=== PATIENT | male | born 1985 | race Caucasian/White ===

== ENCOUNTER 2018-08-26 05:47 | Emergency (ER) | payer OTHER ==
[~2018-08-26] VITALS: Ht 175.3 cm; Wt 71.7 kg
[2018-08-26] MEDS ORDERED: NOHOMEMEDICATIONS (05:55)
[2018-08-26 06:47] LABS: ABSOLUTE EOSINOPHILS 0.1 thou/uL (0.0-0.7); ABSOLUTE LYMPHOCYTES 0.5 thou/uL (0.8-5.3); ABSOLUTE MONOCYTES 0.6 thou/uL (0.0-1.2); BASOPHILS 0.2 %; HEMATOCRIT 43.6 % (42.0-52.0); HEMOGLOBIN 14.8 gm/dL (14.0-18.0); LYMPHOCYTES 6.5 %; MCH 31.3 pg (26.0-34.0); MCHC 33.9 g/dL (28.0-37.0); MCV 92.1 fL (80.0-100.0); MONOCYTES 7.3 %; MPV 9.2 fl. (7.2-11.1); NUCLEATED RBCS 0 /100WBC; PLATELET COUNT* 171 thou/uL (150-400); RBC 4.73 mil/uL (4.50-6.00); RDW-CV 13.3 % (10.5-14.5); WBC 8.2 thou/uL (4.0-11.0)
[2018-08-26 06:54] LABS: ANION GAP 9 mmol/L (7-16); BUN 13 mg/dL (7-18); CALCIUM 8.6 mg/dL (8.5-10.1); CHLORIDE 103 mmol/L (98-107); CO2 26 mmol/L (21-32); CREATININE 0.8 mg/dL (0.6-1.3); GLUCOSE 106 mg/dL (70-99); POTASSIUM 3.7 mmol/L (3.5-5.1); SODIUM 138 mmol/L (136-145)
[2018-08-26 06:57] LABS: INR 1.1; PROTIME 11.3 Seconds (9.20-11.50)
[2018-08-26 07:05] LABS: ALBUMIN 3.7 g/dL (3.4-5.0); ALKALINE PHOSPHATASE 66 U/L (46-116); LIPASE 70 U/L (73-393); NT-PRO BRAIN NAT PEPTIDE 42 pg/mL (<300); SGOT 43 U/L (15-37); SGPT 17 U/L (30-65); TOTAL BILIRUBIN 0.9 mg/dL (<0.1-1.0); TOTAL PROTEIN 6.6 g/dL (6.4-8.2); TROPONIN-I LEVEL <0.06 ng/mL (<0.06)
[2018-08-26] MEDS ORDERED: CARAFATE 1 GM TA1 GM PO (09:22)
[2018-08-26] MEDS ORDERED: OMEPRAZOLE40 MG PO (09:22)
[2018-08-26 09:34] VITALS: BP 113/69
--- NOTE | 2018-08-26 10:52 | EKG ---
[place] [address] ELECTROCARDIOGRAM REPORT Name: JASON FITZPATRICK JR Room: 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 : 1985 Requested By: Reddy Maria Order Number: [id number] MD: Luis Eduardo Fuentes Measurements Intervals [place] Rate: 80 P: 70 IA: 139 QRS: 71 QRSD: 98 T: 71 QT: 371 QTc: 428 Interpretive Statements Sinus rhythm ST elev, probable normal early repol pattern Baseline wander in lead(s) V3,V4,V5,V6 No previous ECG available for comparison Electronically Signed On 08-26-2018 10:52:11 CDT by Luis Eduardo Fuentes [email or web address] <ELECTRONICALLY SIGNED> By: Luis Eduardo Fuentes MD, [facility] 08/26/18 [id number] [id number] Luis Eduardo Fuentes MD, FAC /EPI
== END 2018-08-26 09:34 | disposition home or self-care (01) ==
LOC: M.ERS 05:47
PROVIDERS: Emergency Medicine
DX: R07.89 Other chest pain (principal)